=== PATIENT | female | born 1975 | race African-American/Black ===

== ENCOUNTER 2022-11-19 07:04 | Day surgery (SDC) | payer OTHER ==
[~2022-11-19] VITALS: Ht 162.6 cm; Wt 90.3 kg
[2022-11-19] MEDS ORDERED: fentaNYL citrate 0.05 MG/ML VIAL ONE (08:20)
[2022-11-19] MEDS ORDERED: diphenhydrAMINE 50 MG/ML VIAL ONE (08:20)
[2022-11-19] MEDS ORDERED: LIDOCAINE 2% 100 MG/5 ML UJET TP ONE (08:21)
[2022-11-19] MEDS ORDERED: MIDAZOLAM 5 MG/5 ML VIAL ONE (08:21)
[2022-11-19] MEDS ORDERED: MIDAZOLAM 2 MG/2 ML VIAL IVP ONE (12:55)
[2022-11-19] MEDS ORDERED: fentaNYL citrate 0.05 MG/ML VIAL IVP ONE (12:55)
== END 2022-11-19 10:15 | disposition home or self-care (01) ==
LOC: MDS 07:04 → MMU 07:05 → MDS 10:15
PROVIDERS: ATTEND Internal Medicine Gastroenterology
DX: K62.5 Hemorrhage of anus and rectum (principal); K64.8 Other hemorrhoids; K63.5 Polyp of colon; F32.A Depression, unspecified; Z20.822 Contact with and (suspected) exposure to COVID-19; Z79.899 Other long term (current) drug therapy
CPT/HCPCS: 45385; 87426; 88305; J2250; J3010; J1200